=== PATIENT | female | born 1970 | race Hispanic/Latino ===

== ENCOUNTER 2017-09-18 09:21 | Emergency (ER) | payer SELFPAY ==
[~2017-09-18] VITALS: Ht 167.6 cm; Wt 70.0 kg
[~2017-09-18 09:21] MED LIST: AMOXICILLIN500 MG PO; LORTAB 5/3255 MG PO; NAPROSYN500 MG PO
[2017-09-18 10:09] LABS: URINE BILIRUBIN - DIPSTICK NEGATIVE (NEGATIVE); URINE BLOOD DIPSTICK NEGATIVE (NEGATIVE); URINE COLOR YELLOW; URINE GLUCOSE - DIPSTICK NEGATIVE (NEGATIVE); URINE KETONE NEGATIVE (NEGATIVE); URINE LEUK ESTERASE NEGATIVE (NEGATIVE); URINE NITRITE - DIPSTICK NEGATIVE (Negative); URINE PH 6.5 (4.5-8.0); URINE PROTEIN - DIPSTICK NEGATIVE (NEG-TRACE); URINE SPECIFIC GRAVITY <=1.005; URINE UROBILINOGEN - DIPSTICK 0.2 E.U./dL (0.2)
[2017-09-18 10:11] LABS: URINE CLARITY CLEAR
[2017-09-18 10:15] LABS: HEMATOCRIT 42.4 % (37.0-47.0); IMMATURE GRANULOCYTES 0.3 % (0.0-1.0); MEAN CELL VOLUME 91.2 fL CALC (80.0-100.0); MEAN CORPUSCULAR HGB 30.1 pG CALC (26.0-32.0); NEUT# 3.84 thou/uL (2.00-7.15); RED BLOOD COUNT 4.65 mill/uL (4.20-5.60); RED CELL DISTRI WIDTH 14.3 % (11.5-15.5)
[2017-09-18 10:32] LABS: ALBUMIN 4.2 g/dL (3.2-5.0); ALKALINE PHOSPHATASE 69 u/l (38-126); ANION GAP 16 (6-22 (CALC)); BILIRUBIN, TOTAL 0.5 mg/dL (0.0-1.4); BUN 13 mg/dL (7-17); BUN/CREATININE RATIO 21 (12-20 (CALC)); CARBON DIOXIDE 26 mmol/l (22-30); CHLORIDE 105 mmol/l (95-108); CREATININE 0.6 mg/dL (0.5-1.0); GFR > 60 ML/MIN (>=60 (CALC)); GFR FOR AFR.AMER. > 60 ML/MIN (>=60 (CALC)); SGOT/AST 17 u/l (14-36); SGPT/ALT 26 u/l (9-52); SODIUM 142 mmol/l (137-146); TOTAL PROTEIN 7.5 g/dL (6.3-8.2)
[2017-09-18 10:33] LABS: POTASSIUM 4.8 mmol/l (3.5-5.1)
[2017-09-18] MEDS ORDERED: NAPROSYN500 MG PO (10:45)
[2017-09-18 10:53] VITALS: BP 137/96
== END 2017-09-18 11:09 | disposition home or self-care (01) | DRG 556 ==
LOC: ED 09:21
PROVIDERS: Emergency Medicine
DX: M79.641 Pain in right hand (principal); M79.642 Pain in left hand; F17.210 Nicotine dependence, cigarettes, uncomplicated

== ENCOUNTER 2017-11-04 09:29 | Emergency (ER) | payer SELFPAY ==
[~2017-11-04] VITALS: Ht 167.6 cm; Wt 68.0 kg
[2017-11-04 09:47] VITALS: BP 137/73
[2017-11-04] MEDS ORDERED: VOLTAREN1%GEL TOP (10:00)
[2017-11-04] MEDS ORDERED: MOTRIN400 MG PO (10:00)
== END 2017-11-04 10:15 | disposition home or self-care (01) | DRG 74 ==
LOC: ED 09:29
DX: G56.02 Carpal tunnel syndrome, left upper limb (principal)

== ENCOUNTER 2017-12-15 12:01 | Emergency (ER) | payer SELFPAY ==
[~2017-12-15] VITALS: Ht 154.9 cm; Wt 70.5 kg
[~2017-12-15 12:01] MED LIST changes: +MOTRIN400 MG PO; +VOLTAREN1%GEL TOP
[2017-12-15 13:30] VITALS: BP 147/78
[2017-12-15] MEDS ORDERED: AMOXICILLIN875 MG PO (13:32)
[2017-12-15] MEDS ORDERED: TESSALON PER100 MG PO (13:32)
== END 2017-12-15 13:30 | disposition home or self-care (01) | DRG 153 ==
LOC: ED 12:01
DX: J02.0 Streptococcal pharyngitis (principal); R05 Cough

== ENCOUNTER 2017-12-26 14:28 | Emergency (ER) | payer SELFPAY ==
[~2017-12-26] VITALS: Ht 154.9 cm; Wt 70.5 kg
[~2017-12-26 14:28] MED LIST changes: +AMOXICILLIN875 MG PO; +TESSALON PER100 MG PO
[2017-12-26 15:20] LABS: HEMATOCRIT 41.5 % (37.0-47.0); HEMOGLOBIN 13.8 g/dl (12.0-16.0); IMMATURE GRANULOCYTES 0.3 % (0.0-5.0); MEAN CELL VOLUME 88.5 fL CALC (80.0-100.0); MEAN CORPUSCULAR HGB 29.4 pG CALC (26.0-32.0); MEAN CORPUSCULAR HGB CONC 33.3 g/L CALC (32.0-36.0); NEUT# 3.05 thou/uL (2.00-7.15); RED BLOOD COUNT 4.69 mill/uL (4.20-5.60); RED CELL DISTRI WIDTH 13.8 % (11.5-15.5)
[2017-12-26 15:31] LABS: INFLUENZA A NONE DETECTED (NONE DETECT); INFLUENZA B NONE DETECTED (NONE DETECT)
[2017-12-26 15:38] LABS: ALBUMIN 4.2 g/dL (3.2-5.0); ALKALINE PHOSPHATASE 68 u/l (38-126); ANION GAP 14 (6-22 (CALC)); BILIRUBIN, TOTAL 0.4 mg/dL (0.0-1.4); BUN 8 mg/dL (7-17); BUN/CREATININE RATIO 13 (12-20 (CALC)); CARBON DIOXIDE 25 mmol/l (22-30); CHLORIDE 108 mmol/l (95-108); CREATININE 0.6 mg/dL (0.5-1.0); GFR > 60 ML/MIN (>=60 (CALC)); GFR FOR AFR.AMER. > 60 ML/MIN (>=60 (CALC)); POTASSIUM 4.3 mmol/l (3.5-5.1); SGOT/AST 21 u/l (14-36); SGPT/ALT 31 u/l (9-52); SODIUM 143 mmol/l (137-146); TOTAL PROTEIN 7.4 g/dL (6.3-8.2)
[2017-12-26 16:11] LABS: URINE BILIRUBIN - DIPSTICK NEGATIVE (NEGATIVE); URINE BLOOD DIPSTICK NEGATIVE (NEGATIVE); URINE COLOR YELLOW; URINE GLUCOSE - DIPSTICK NEGATIVE (NEGATIVE); URINE KETONE NEGATIVE (NEGATIVE); URINE LEUK ESTERASE NEGATIVE (Negative); URINE NITRITE - DIPSTICK NEGATIVE (Negative); URINE PH 6.5 (4.5-8.0); URINE PROTEIN - DIPSTICK NEGATIVE (NEG-TRACE); URINE UROBILINOGEN - DIPSTICK 0.2 E.U./dL (0.2)
[2017-12-26 16:12] LABS: URINE CLARITY CLEAR
[2017-12-26] MEDS ORDERED: TESSALON PERLE100 MG PO (17:00)
[2017-12-26] MEDS ORDERED: PROAIR HFA108 MCG/AC IN (17:00)
[2017-12-26] MEDS ORDERED: MEDDOSEPAK PO (17:02)
[2017-12-26 17:11] VITALS: BP 138/82
== END 2017-12-26 17:15 | disposition home or self-care (01) | DRG 204 ==
LOC: ED 14:28
DX: R05 Cough (principal); J44.9 Chronic obstructive pulmonary disease, unspecified; Z87.891 Personal history of nicotine dependence

== ENCOUNTER 2018-03-16 10:09 | Emergency (ER) | payer SELFPAY ==
[~2018-03-16] VITALS: Ht 154.9 cm; Wt 80.0 kg
[~2018-03-16 10:09] MED LIST changes: +MEDDOSEPAK PO; +PROAIR HFA108 MCG/AC IN; +TESSALON PERLE100 MG PO
[2018-03-16 11:12] LABS: URINE BILIRUBIN - DIPSTICK NEGATIVE (NEGATIVE); URINE BLOOD DIPSTICK NEGATIVE (NEGATIVE); URINE COLOR YELLOW; URINE GLUCOSE - DIPSTICK NEGATIVE (NEGATIVE); URINE KETONE NEGATIVE (NEGATIVE); URINE LEUK ESTERASE NEGATIVE (NEGATIVE); URINE NITRITE - DIPSTICK NEGATIVE (Negative); URINE PROTEIN - DIPSTICK NEGATIVE (NEG-TRACE); URINE SPECIFIC GRAVITY 1.015; URINE UROBILINOGEN - DIPSTICK 0.2 E.U./dL (0.2)
[2018-03-16 11:17] LABS: HEMATOCRIT 38.3 % (37.0-47.0); HEMOGLOBIN 12.6 g/dl (12.0-16.0); IMMATURE GRANULOCYTES 0.2 % (0.0-5.0); MEAN CELL VOLUME 87.4 fL CALC (80.0-100.0); MEAN CORPUSCULAR HGB 28.8 pG CALC (26.0-32.0); MEAN CORPUSCULAR HGB CONC 32.9 g/L CALC (32.0-36.0); NEUT# 2.68 thou/uL (2.00-7.15); RED BLOOD COUNT 4.38 mill/uL (4.20-5.60); RED CELL DISTRI WIDTH 14.1 % (11.5-15.5)
[2018-03-16 11:18] LABS: URINE CLARITY CLEAR
[2018-03-16 11:28] LABS: ALBUMIN 3.7 g/dL (3.2-5.0); ALKALINE PHOSPHATASE 60 u/l (38-126); AMYLASE 63 u/l (30-110); ANION GAP 13 (6-22 (CALC)); BILIRUBIN, TOTAL 0.5 mg/dL (0.0-1.4); BUN 12 mg/dL (7-17); BUN/CREATININE RATIO 23 (12-20 (CALC)); CARBON DIOXIDE 24 mmol/l (22-30); CHLORIDE 108 mmol/l (95-108); CREATININE 0.5 mg/dL (0.5-1.0); GFR > 60 ML/MIN (>=60 (CALC)); GFR FOR AFR.AMER. > 60 ML/MIN (>=60 (CALC)); LIPASE 84 u/l (23-300); POTASSIUM 3.8 mmol/l (3.5-5.1); SGOT/AST 22 u/l (14-36); SODIUM 141 mmol/l (137-146); TOTAL PROTEIN 6.6 g/dL (6.3-8.2)
[2018-03-16] MEDS ORDERED: ULTRAM50 M1 PO (11:40)
[2018-03-16] MEDS ORDERED: FLEXERIL PO (11:40)
[2018-03-16] MEDS ORDERED: PREVACID30 M3 PO (11:41)
[2018-03-16 11:58] VITALS: BP 138/74
== END 2018-03-16 12:00 | disposition home or self-care (01) | DRG 392 ==
LOC: ED 10:09
PROVIDERS: Emergency Medicine
DX: K29.70 Gastritis, unspecified, without bleeding (principal); M79.10 Myalgia, unspecified site

== ENCOUNTER 2018-05-12 15:20 | Emergency (ER) | payer SELFPAY ==
[~2018-05-12] VITALS: Ht 154.9 cm; Wt 77.3 kg
[~2018-05-12 15:20] MED LIST changes: +FLEXERIL PO; +PREVACID30 M3 PO; +ULTRAM50 M1 PO
[2018-05-12 16:28] LABS: HEMATOCRIT 43.2 % (37.0-47.0); HEMOGLOBIN 14.5 g/dl (12.0-16.0); IMMATURE GRANULOCYTES 0.2 % (0.0-5.0); MEAN CELL VOLUME 85.9 fL CALC (80.0-100.0); MEAN CORPUSCULAR HGB 28.8 pG CALC (26.0-32.0); MEAN CORPUSCULAR HGB CONC 33.6 g/L CALC (32.0-36.0); NEUT# 3.4 thou/uL (2.00-7.15); RED BLOOD COUNT 5.03 mill/uL (4.20-5.60); RED CELL DISTRI WIDTH 14.3 % (11.5-15.5)
[2018-05-12 16:42] LABS: ALBUMIN 4.3 g/dL (3.2-5.0); ALKALINE PHOSPHATASE 83 u/l (38-126); ANION GAP 15 (6-22 (CALC)); BILIRUBIN, TOTAL 0.6 mg/dL (0.0-1.4); BUN 6 mg/dL (7-17); BUN/CREATININE RATIO 9 (12-20 (CALC)); CARBON DIOXIDE 23 mmol/l (22-30); CHLORIDE 103 mmol/l (95-108); CREATININE 0.7 mg/dL (0.5-1.0); GFR > 60 ML/MIN (>=60 (CALC)); GFR FOR AFR.AMER. > 60 ML/MIN (>=60 (CALC)); POTASSIUM 3.9 mmol/l (3.5-5.1); SGOT/AST 31 u/l (14-36); SODIUM 138 mmol/l (137-146); TOTAL PROTEIN 7.7 g/dL (6.3-8.2)
[2018-05-12] MEDS ORDERED: TAM75CAP PO (16:58)
[2018-05-12] MEDS ORDERED: AMOXICILLIN500 MG PO (16:58)
[2018-05-12] MEDS ORDERED: TORADOL PO (16:58)
[2018-05-12 18:01] VITALS: BP 118/67
== END 2018-05-12 18:15 | disposition home or self-care (01) | DRG 153 ==
LOC: ED 15:20
PROVIDERS: Emergency Medicine
DX: J11.1 Influenza due to unidentified influenza virus with other respiratory manifestations (principal)
CPT/HCPCS: J0131

== ENCOUNTER 2022-04-22 13:14 | Emergency (ER) | payer SELFPAY ==
[~2022-04-22] VITALS: Ht 154.9 cm; Wt 63.5 kg
[~2022-04-22 13:14] MED LIST changes: +TAM75CAP PO; +TORADOL PO
[2022-04-22 15:03] VITALS: BP 129/88
== END 2022-04-22 15:16 | disposition left against medical advice (07) | DRG 951 ==
LOC: ED 13:14 → LWOBS 15:16
DX: Z53.21 Procedure and treatment not carried out due to patient leaving prior to being seen by health care provider (principal)

== ENCOUNTER 2023-05-22 14:15 | Emergency (ER) | payer OTHER ==
[~2023-05-22] VITALS: Ht 154.9 cm; Wt 68.0 kg
[~2023-05-22 14:15] MED LIST changes: +METHOCARBAMOL500 MG PO
[2023-05-22 14:32] VITALS: BP 148/98
[2023-05-22] MEDS ORDERED: AMOX/K CLAV875 M1 PO (14:40)
[2023-05-22] MEDS ORDERED: IBUPROFEN600 MG PO (14:40)
[2023-05-22 14:45] VITALS: BP 149/89
[2023-05-22 15:00] VITALS: BP 131/70
[2023-05-22 15:04] VITALS: BP 131/70
== END 2023-05-22 15:07 | disposition home or self-care (01) ==
LOC: ED 14:15
DX: S02.5XXA Fracture of tooth (traumatic), initial encounter for closed fracture (principal); K04.7 Periapical abscess without sinus; X58.XXXA Exposure to other specified factors, initial encounter; Z72.0 Tobacco use

== ENCOUNTER 2024-01-14 20:08 | Emergency (ER) | payer SELFPAY ==
[~2024-01-14] VITALS: Ht 154.9 cm; Wt 68.0 kg
[~2024-01-14 20:08] MED LIST changes: +AMOX/K CLAV875 M1 PO; +IBUPROFEN600 MG PO
[2024-01-14] MEDS ORDERED: ONDANSETRON HCl 4 MG/2 ML SDV IV STA (20:20)
[2024-01-14] MEDS ORDERED: SODIUM CHLORIDE 0.9% 1,000 ML IV STA (20:20)
[2024-01-14] MEDS ORDERED: Pantoprazole Sodium 40 MG VIAL (Protonix) IV STA (20:20)
[2024-01-14 20:30] VITALS: BP 127/83
[2024-01-14 20:32] LABS: BASO% 0.1 % (0-3); EOS% 0.2 % (0-8); HEMOGLOBIN 12.8 g/dl (12.0-16.0); IMMATURE GRANULOCYTES 0.1 % (0.0-5.0); LYMPH% 14.1 % (15-41); MEAN CELL VOLUME 88.4 fL CALC (80.0-100.0); MEAN CORPUSCULAR HGB CONC 32.8 g/dL CAL (32.0-36.0); MONO% 6.1 % (2-13); NEUT# 6.37 thou/uL (2.00-7.15); NEUT% 79.4 % (42-76); RED BLOOD COUNT 4.41 mill/uL (4.20-5.60); RED CELL DISTRI WIDTH 13.7 % (11.5-15.5)
[2024-01-14 20:46] VITALS: BP 129/80
[2024-01-14 20:48] LABS: ALBUMIN 4.2 g/dL (3.2-5.0); ALKALINE PHOSPHATASE 87 u/l (38-126); ANION GAP 9 (6-22 (CALC)); BILIRUBIN, TOTAL 0.7 mg/dL (0.02-1.3); BUN 12 mg/dL (7-17); BUN/CREATININE RATIO 18 (12-20 (CALC)); CARBON DIOXIDE 25 mmol/l (22-30); CHLORIDE 111 mmol/l (95-108); CREATININE 0.7 mg/dL (0.5-1.0); ESTIMATED GFR 102 ML/MIN (>=90 (CALC)); ETHYL ALCOHOL 0 mg/dl (0-30); MAGNESIUM 1.9 mg/dL (1.6-2.3); POTASSIUM 3.8 mmol/l (3.5-5.1); SGOT/AST 29 u/l (14-36); SODIUM 142 mmol/l (137-146); TOTAL PROTEIN 7.5 g/dL (6.3-8.2)
[2024-01-14 21:00] VITALS: BP 139/75
[2024-01-14 21:16] VITALS: BP 137/74
[2024-01-14 21:18] LABS: URINE BILIRUBIN - DIPSTICK Negative (NEGATIVE); URINE BLOOD DIPSTICK Negative (NEGATIVE); URINE GLUCOSE - DIPSTICK Negative (NEGATIVE); URINE KETONE Trace mg/dL (NEGATIVE); URINE LEUK ESTERASE Negative (NEGATIVE); URINE NITRITE - DIPSTICK Negative (Negative); URINE PROTEIN - DIPSTICK Negative (NEG-TRACE); URINE SPECIFIC GRAVITY 1.025
[2024-01-14 21:20] LABS: URINE COLOR Yellow
[2024-01-14] MEDS ORDERED: ONDANSETRON4 MG PO (21:28)
[2024-01-14 21:30] VITALS: BP 141/80
[2024-01-14 21:46] VITALS: BP 141/80
== END 2024-01-14 21:59 | disposition home or self-care (01) | DRG 392 ==
LOC: ED 20:08
PROVIDERS: Family Medicine
DX: R11.2 Nausea with vomiting, unspecified (principal); F15.10 Other stimulant abuse, uncomplicated; Z72.0 Tobacco use
CPT/HCPCS: J2470